=== PATIENT | male | born 1940 | race Caucasian/White ===

== ENCOUNTER 2017-09-12 06:51 | Inpatient (IN) ==
[~2017-09-12 06:51] MED LIST: ACETAMINOPHEN 500 MG TABLET PO ONE; FAMOTIDINE PB 20 MG/50 ML BAG IV ONE; LIDOCAINE 1% (10mg/ml) 2mL INJ PF SDV ID ONE; METOCLOPRAMIDE 10mg/2ml INJECTION IVP ONE; NOZIN NASAL SWAB NAS ONE; ONDANSETRON 4 MG/2 ML INJECTION IVP ONE; TRANEXAMIC ACID 1,000 MG in NS 100 ML IV ONE
[2017-09-12] MEDS ORDERED: TRANEXAMIC ACID 1,000 MG in NS 100 ML IV ONE (07:00)
[2017-09-12 07:05] VITALS: BMI 32.1
[2017-09-12] MEDS ORDERED: VANCOMYCIN 1,000 MG INJECTION ONE (07:08)
[2017-09-12] MEDS: LR 1,000 ML IV SCH ×2 (07:45→08:58)
[2017-09-12] MEDS ORDERED: EPINEPHrine 0.25 MG, BUPIVACAINE 0.25% PF 30 ML, MORPHINE SULFATE 15 MG, KETOROLAC INJ ... OPSITE ONE (08:00)
[2017-09-12] MEDS ORDERED: CEFAZOLIN 1 G INJECTION IVP ONE (08:09)
[2017-09-12] MEDS ORDERED: VANCOMYCIN 1,000 MG INJECTION IAR ONE (08:15)
[2017-09-12] MEDS ORDERED: MIDAZOLAM 2mg/2ml INJECTION ONE (08:43)
[2017-09-12] MEDS ORDERED: PROPOFOL 500 MG/50 ML VIAL IV ONE (08:58)
[2017-09-12] MEDS ORDERED: SALINE FLUSH 10ml SYRINGE ONE (09:12)
[2017-09-12] MEDS ORDERED: EPHEDRINE 50mg/ml INJECTION ONE (09:12)
--- NOTE | 2017-09-12 10:19 | Operative Note ---
- Procedure Preoperative Diagnosis: Left knee primary degenerative joint disease Postoperative Diagnosis: Same as preoperative diagnosis. Surgeon: Garima King MD Rectifying Operator: Michael Robles Complications: None. Anesthesia: Spinal. Estimated Blood Loss: See Anesthesia Record. Fluids: Please see Anesthesia Record. Desciption of Procedure: Mr. Burdick and his left knee were identified and marked in the preoperative holding area. He was brought back to the operating suite after a saphenous nerve block was placed in the preoperative holding area. Spinal anesthetic was administered and he was placed supine on the operating table. The left lower extremity was prepped and draped in my normal sterile fashion. Timeout was performed. The Dial a Dealer robot was used during the surgery. He had a slight flexion contracture with a fixed varus deformity. A standard anterior midline incision followed by medial parapatellar arthrotomy was performed. Anterior fat pad and meniscus were removed. The patella was resurfaced to a size 35. He had complete loss of bone in both medial and lateral compartments. Tibial and femoral arrays were placed both within the original incision. Checkpoints were then placed both in the femur and the tibia. The bone was then registered with the Dial a Dealer robot. Osteophytes were removed and gaps were captured both 90 and 0 with correction. Dial a Dealer suffered was used to adjust components until we achieved 18 mm gaps throughout. The Dial a Dealer robotic arm was then used to assist with the bone cuts. Posterior osteophytes and remaining meniscus were removed. Trial components were placed. We used a 5 femur and a 6 tibia with a 9 mm spacer. He tracked well and was well balanced throughout range of motion. The leg was exsanguinated and the tourniquet inflated to 250 mmHg. The bone was prepared for cementing and components were cemented into place and allowed to cure in extension. The tourniquet was let down and hemostasis obtained with electrocautery. The knee was ranged one more time to ensure good stability, balance and patellar tracking. 1 g of vancomycin powder was then placed into the knee joint. The capsulotomy was then closed with #1 Vicryl. I then left my land surveyor assistant to close the subcutaneous tissue with 2-0 Vicryl. Running 4-0 Monocryl will be used in the subcuticular layer. Dermabond will be used on the skin followed by sterile dressing. After drapes are removed patient will be taken to recovery room under the care of anesthesia.
--- NOTE | 2017-09-12 10:32 | Anesthesia Preoperative Report ---
Anesthesia Preoperative Record - Date and Time Date: 09/12/17 Preoperative Diagnosis: Lt TKA M17.12 Proposed Procedure: left TKA, robot NPO Since Date: 09/11/17 NPO Since Time: 23:00 Allergies/Adverse Reactions: Allergies Allergy/AdvReac Type Severity Reaction Status Date / Time No Known Drug Allergies Allergy Unknown Verified 09/12/17 07:13 - Vital Signs Vital Signs: Temperature 98.0 F 09/12/17 07:05 Pulse Rate 63 09/12/17 07:23 Respiratory Rate 18 09/12/17 07:05 Blood Pressure 150/71 H 09/12/17 07:05 Pulse Oximetry 92 09/12/17 07:05 Height and Weight: Height 5 ft 10.5 in Weight 103.1 kg Body Mass Index 32.1 - Medications Inpatient Medications: Current Medications Lactated Ringer's (Lactated Ringers) 1,000 mls @ 50 mls/hr IV .Q20H ALVARO Last Admin: 09/12/17 08:58 Dose: 50 mls/hr Epinephrine HCl 0.25 mg/Bupivacaine HCl 30 ml/Morphine Sulfate 15 mg/Ketorolac Tromethamine 60 mg/Sodium Chloride 65.25 mls @ 1 mls/hr OPSITE INTRAOP ONE PRN Reason: Protocol Stop: 09/15/17 01:14 Last Admin: 09/12/17 09:33 Dose: 1 mls/hr Sodium Chloride (Iv Flush) 10 - 80 ml IV PRN PRN PRN Reason: Flushing Home Medications: Home Medications Medication Instructions Recorded Confirmed Type Ibuprofen [Advil] 200 mg PO Q6HPRN PRN #0 06/28/13 09/12/17 History Pravastatin Sodium 40 mg PO HS #0 06/28/13 09/12/17 History Lotrel (amlodipine 5 mg-benazepril 1 cap PO DAILY cap 05/03/17 09/12/17 History 20 mg) capsule Fluorouracil 5% Cream 1 dose TP DAILY 08/22/17 09/12/17 History Metformin HCl [Glucophage] 850 mg PO DAILY 08/22/17 09/12/17 History Multivitamin [Multivitamins] 1 each PO DAILY 08/22/17 09/12/17 History Is Patient on Beta Jaime?: No - Medical History Respiratory: Reports: Chronic Obstructive Pulmonary Disease (COPD) (mild. denies SOB unless severe exertion/cold, no breathing tx, no home O2) Cardiovascular: Reports: Hypertension DENIES: Angina, Myocardial Infarction Gastrointestional: DENIES: Gastroesophageal Reflux Disease Renal/Endocrine: Reports: Diabetes Mellitus Type 2 Other History: DENIES: Anesthesia Reactions - Surgical History Neurological Surgeries: Reports: Other (Lumbar fusion-) HEENT Surgeries: Reports: Eye Surgery (cataract ext w/ IOL-OU) GI Surgery/Treatments: Reports: Colon Resection (low resection w/ ileostomy; reversal ileostomy), Colonoscopy, Other (POWERE PORT PLACED AND REMOVED FOR CHEMO S/P COLON RESECTION) Surgery/Treatment: REPORT: Other (TURP) Musculoskeletal Surgery/Tx: Reports: Other (lumbar fusion) Anesthesia Reactions: None Hx Family Anesthesia Reaction: No History of Motion Sickness: No - Social History Smoking Status: Former smoker Substance Use Type: does not use Alcohol Intake Frequency: does not drink - Pertinent Findings Laboratory: CBC and BMP 09/12/17 07:14 BMP 09/12/17 07:14 Sodium 143 Potassium 4.3 Chloride 104 Carbon Dioxide 27 BUN 21.0 H Creatinine 0.7 L Glucose 121 H Calcium 9.1 EKG: Sinus Rhythm - Physical Exam Respiratory Exam: Present: lungs clear, bilateral breath sounds equal Cardiovascular Exam: Present: regular rate and rhythm - Airway Assessment Mallampati Score: II TMD: 3 Fingerbreadths Neck Extension: fair Teeth: upper dentures, lower dentures Overall Assessment: no airway concerns - ASA ASA Score: 2 - Plan Anesthesia: General TIVA, Neuroaxial Regional/Trunk Block: Spinal - Discussion Discussion: Discussed risks/options/alternatives of anesthesia and questions answered. Patient consents. Nursing pain assessment noted. Attestation Statement: Prior to the delivery of any anesthetic medication, I examined the patient, developed the plan, obtained the patient's consent and discussed the risk and benefits of the procedure with the patient/guardian. - Additional Information Seen by Anesthesia: Yes
[2017-09-12] MEDS ORDERED: ROPIVACAINE 0.5% (5mg/ml) 30ml INJ ONE (10:40)
--- NOTE | 2017-09-12 11:30 | XRay Report ---
Indication: postoperative image PROCEDURE: XR knee LT 2V: Encounter: Initial Comparison: July 13, 2017 Findings: Postoperative changes of left total knee replacement are seen. There is expected postoperative subcutaneous gas. No evidence of hardware failure or acute fracture. No retained radiopaque surgical instruments or sponges. Overlying material causing artifact. Impression: New left total knee prosthesis without evidence of immediate complication. .
--- NOTE | 2017-09-12 11:40 | Anesthesia Postoperative Note ---
- Date and Time Date: 09/12/17 Time: 11:14 - Status Patient Participated in Evaluation: Patient Participated in Person Vital Signs: Temperature 97.4 F 09/12/17 11:30 Pulse Rate 58 L 09/12/17 11:30 Respiratory Rate 11 09/12/17 11:30 Blood Pressure 152/72 H 09/12/17 11:30 Pulse Oximetry 100 09/12/17 11:30 Respiratory Function: Airway Patent Cardiovascular Function: Regular Pulse EKG: Sinus Rhythm Mental Status: Alert and Oriented Pain Intensity: 0 Hydration: IV Infusing Complications During Recover: None Apparent - Follow-Up Instructions Instructions: Per Surgeon
--- NOTE | 2017-09-12 11:41 | Anesthesia Procedure Note ---
Peripheral Nerve Blockade - Procedure Physician: Slade King MD Date: 09/12/17 Surgical Procedure: left TKA Discussion: Discussed risks/options/alternatives of anesthesia and questions answered. Patient consents. Nursing pain assessment noted. Block Start: 10:54 Block Stop: 10:57 Blocked Employed: Adductor Canal Indication: Post-Operative Pain Approach: Left Side Confirmed Position: Supine Patient: Consent, Risks/Benefits Discussed, Informed, Post Block Act. Discussed IV Sedation: No (spinal still in effect) Initial Vital Signs: Temperature 98.0 F 09/12/17 07:05 Temperature Source Oral 09/12/17 07:05 Pulse Rate 71 09/12/17 07:05 Respiratory Rate 18 09/12/17 07:05 Blood Pressure 150/71 H 09/12/17 07:05 Blood Pressure Mean 97 09/12/17 07:05 Blood Pressure Position Sitting 09/12/17 07:05 Pulse Oximetry 92 09/12/17 07:05 Oxygen Delivery Method 09/12/17 07:05 Post Vital Signs: Temperature 97.4 F 09/12/17 11:30 Pulse Rate 58 L 09/12/17 11:30 Respiratory Rate 11 09/12/17 11:30 Blood Pressure 152/72 H 09/12/17 11:30 Pulse Oximetry 100 09/12/17 11:30 Initial Pain Pain Score: 0 Post Block Pain Score: 0 Prep: Chlorhexadine/ETOH Ultrasound Used?: Yes - Injectate Ropivacaine (%): 0.5 Ropivacaine (mL): 30 Injection: Injection made incrementally with constant monitoring and aspiration every ml
[2017-09-12] MEDS ORDERED: NOZIN NASAL SWAB NAS ONE (11:46)
[2017-09-12] MEDS ORDERED: NAPROXEN 220 MG TABLET PO PRN (11:46)
[2017-09-12] MEDS ORDERED: LORazepam 1 MG TABLET PO PRN (11:46)
[2017-09-12] MEDS ORDERED: DiphenhydrAMINE 25 MG CAPSULE PO PRN (11:46)
[2017-09-12] MEDS ORDERED: DiphenhydrAMINE 50 MG/ML INJECTION IVP PRN (11:46)
[2017-09-12] MEDS ORDERED: ONDANSETRON 4 MG/2 ML INJECTION IVP PRN (11:46)
[2017-09-12] MEDS ORDERED: INSULIN ASPART 100unit/ml INJECTION SQ PRN (11:46)
[2017-09-12] MEDS: NS 1,000 ML IV SCH ×2 (11:53→23:07)
[2017-09-12] MEDS: ACETAMINOPHEN 325 MG TABLET PO SCH ×3 (12:50→20:01)
[2017-09-12] MEDS: LOPERAMIDE 2 MG PO SCH ×3 (12:51→18:23)
[2017-09-12] MEDS: NOZIN NASAL SWAB NAS SCH ×2 (13:49→23:08)
[2017-09-12] MEDS ORDERED: SALINE FLUSH 10ml SYRINGE IV PRN (14:15)
[2017-09-12] MEDS: Oxycodone *IR* 5 MG TABLET PO PRN ×2 (15:43→19:57)
[2017-09-12] MEDS: CEFAZOLIN 2 G in NS 100 ML IV SCH (16:32)
[2017-09-12] MEDS: PRAVASTATIN 40 MG TABLET PO SCH (20:00)
[2017-09-12] MEDS: DOCUSATE SODIUM 100 MG CAPSULE PO SCH (20:00)
[2017-09-12] MEDS: ASPIRIN *EC* 81 MG TABLET PO SCH (20:00)
[2017-09-12] MEDS: SENNOSIDES 8.6 MG TABLET PO SCH (20:01)
[2017-09-13] MEDS: NS 1,000 ML IV SCH (01:24)
[2017-09-13] MEDS: CEFAZOLIN 2 G in NS 100 ML IV SCH (01:24)
[2017-09-13] MEDS: NOZIN NASAL SWAB NAS SCH ×4 (06:20→21:42)
--- NOTE | 2017-09-13 08:23 | Orthopedic Progress Note ---
Date: Subjective/Severity of Illness: Irais is doing well. Pain is well controlled. No specific complaints of CP, or SOA. He has been up with good tolerance. Orthopedic Objective PO Vital signs: Temperature 97.2 F 09/13/17 07:47 Pulse Rate 63 09/13/17 07:47 Respiratory Rate 16 09/13/17 07:47 Blood Pressure 156/69 H 09/13/17 07:47 Pulse Oximetry 92 09/13/17 07:47 Height and Weight: Height 5 ft 10.5 in Weight 227 lb 4.745 oz Body Mass Index 32.1 - Constitutional General Appearance: Present: alert, cooperative, no acute distress - Respiratory Exam Present: non-labored - Extremities Exam Extremities: Present: pulses intact, normal capillary refill. Absent: calf tenderness - Surgical Site Incision: Mepilex dressing intact, no drainage - Integumentary Exam Present: pink, warm, dry - Neurological Exam Present: intact to light touch, no deficits - Psychiatric Exam Present: alert, normal affect - Labs Result Diagrams: 09/13/17 03:54 09/13/17 03:54 Abnormal lab results 09/13/17 09/13/17 Range/Units 03:54 03:54 RBC 4.41 L (4.50-5.90) M/MM3 Hgb 12.1 L (13.5-17.5) GM/DL Hct 38.0 L (41-53) % Plt Count 116 L (130-400) T/MM3 MPV 13.2 H (9.4-12.4) UM3 Creatinine 0.7 L (0.8-1.5) MG/DL Glucose 116 H (75-110) MG/DL Calcium 7.8 L D (8.4-10.2) MG/DL H & H 09/13/17 Range/Units 03:54 Hgb 12.1 L (13.5-17.5) GM/DL Hct 38.0 L (41-53) % Orthopedic Assessment and Plan (1) Primary osteoarthritis of left knee Status: Acute Assessment and Plan: Current anti-coagulation protocol for VTE prophylaxis. SCD's. Resume oral diabetic agents. Monitor blood sugars. PT/OT services to improve independent function. Discharge Planning per Case Management. (2) Type 2 diabetes mellitus Status: Chronic - Anticoagulation Therapy Anticoagulation: other (ASA 81mg BID x 6 weeks.) Hospital Course Summary Disclaimer: The visit summary below is not to be considered part of the above Progress Note.
[2017-09-13] MEDS: ACETAMINOPHEN 325 MG TABLET PO SCH ×4 (08:47→20:19)
[2017-09-13] MEDS: METFORMIN 850 MG TABLET PO SCH (08:47)
[2017-09-13] MEDS: LOPERAMIDE 2 MG PO SCH ×3 (08:47→17:14)
[2017-09-13] MEDS: POLYETHYL GLYCOL 3350 17gm PACKET PO SCH (08:48)
[2017-09-13] MEDS: DOCUSATE SODIUM 100 MG CAPSULE PO SCH ×2 (08:48→20:15)
[2017-09-13] MEDS: ASPIRIN *EC* 81 MG TABLET PO SCH ×2 (08:48→20:19)
[2017-09-13] MEDS: AMLODIPINE/BENAZEPRIL 5mg/20mg CAPSULE PO SCH (08:53)
[2017-09-13] MEDS: Oxycodone *IR* 5 MG TABLET PO PRN ×3 (09:49→23:07)
[2017-09-13] MEDS ORDERED: SENNOSIDES 8.6 MG TABLET PO PRN (10:41)
--- NOTE | 2017-09-13 12:55 | Discharge Instructions ---
Discharge Plan - Med Rec/Dispo Referrals/Follow Up: Slade King MD [Physician] - 10/04/17 9:15 am Isabel Instructions: [facility] [place] Postop Instructions Prescriptions: New Naproxen [Aleve] 440 mg PO BID PRN #60 tab PRN Reason: Pain Oxycodone *IR* [Roxicodone *Ir*] 5 - 15 mg PO Q3H PRN #60 tab PRN Reason: Breakthrough Pain Acetaminophen [Tylenol] 650 mg PO QID #100 tab Aspirin *EC* [Ecotrin] 81 mg PO BID #84 tab Discontinued Ibuprofen [Advil] 200 mg PO Q6HPRN PRN #0 PRN Reason: Pain No Action Multivitamin [Multivitamins] 1 each PO DAILY Pravastatin Sodium 40 mg PO HS #0 Fluorouracil 5% Cream 1 dose TP DAILY Metformin HCl [Glucophage] 850 mg PO DAILY Lotrel (amlodipine 5 mg-benazepril 20 mg) capsule 1 cap PO DAILY cap - Disposition 01 Discharged Home, Self-Care
--- NOTE | 2017-09-13 13:02 | Orthopedic Progress Note ---
Date: Subjective/Severity of Illness: Irais struggled with PT today, Mushtaq said her was not safe to discharge home. I have asked the healthcare administrative assistant to arrange for a different discharge plan. We will keep him tonight. Pain is well controlled. No specific complaints of CP, or SOA. He has been up with good tolerance. Orthopedic Objective PO Vital signs: Temperature 97.0 F 09/13/17 12:32 Pulse Rate 68 09/13/17 12:32 Respiratory Rate 18 09/13/17 12:32 Blood Pressure 127/64 09/13/17 12:32 Pulse Oximetry 92 09/13/17 12:32 Height and Weight: Height 5 ft 10.5 in Weight 227 lb 4.745 oz Body Mass Index 32.1 - Constitutional General Appearance: Present: alert, cooperative, no acute distress - Respiratory Exam Present: non-labored - Extremities Exam Extremities: Present: pulses intact, normal capillary refill. Absent: calf tenderness - Surgical Site Incision: Mepilex dressing intact, no drainage - Integumentary Exam Present: pink, warm, dry - Neurological Exam Present: intact to light touch, no deficits - Psychiatric Exam Present: alert, normal affect - Labs Result Diagrams: 09/13/17 03:54 09/13/17 03:54 Abnormal lab results 09/13/17 09/13/17 Range/Units 03:54 03:54 RBC 4.41 L (4.50-5.90) M/MM3 Hgb 12.1 L (13.5-17.5) GM/DL Hct 38.0 L (41-53) % Plt Count 116 L (130-400) T/MM3 MPV 13.2 H (9.4-12.4) UM3 Creatinine 0.7 L (0.8-1.5) MG/DL Glucose 116 H (75-110) MG/DL Calcium 7.8 L D (8.4-10.2) MG/DL H & H 09/13/17 Range/Units 03:54 Hgb 12.1 L (13.5-17.5) GM/DL Hct 38.0 L (41-53) % Orthopedic Assessment and Plan (1) Type 2 diabetes mellitus Status: Chronic (2) Primary osteoarthritis of left knee Status: Acute Assessment and Plan: Keep him tonight due to his mobility not being safe. accreditation coordinator to arrange a different plan. Current anti-coagulation protocol for VTE prophylaxis. SCD's. Resume oral diabetic agents. Monitor blood sugars. PT/OT services to improve independent function. Discharge Planning per Case Management. - Anticoagulation Therapy Anticoagulation: other (ASA 81mg BID x 6 weeks.) Hospital Course Summary Disclaimer: The visit summary below is not to be considered part of the above Progress Note.
[2017-09-13] MEDS: SENNOSIDES 8.6 MG TABLET PO SCH (20:16)
[2017-09-13] MEDS: PRAVASTATIN 40 MG TABLET PO SCH (20:19)
[2017-09-14] MEDS: NOZIN NASAL SWAB NAS SCH ×2 (05:52→13:17)
[2017-09-14] MEDS: Oxycodone *IR* 5 MG TABLET PO PRN ×2 (06:24→10:12)
[2017-09-14] MEDS: METFORMIN 850 MG TABLET PO SCH (08:14)
[2017-09-14] MEDS: AMLODIPINE/BENAZEPRIL 5mg/20mg CAPSULE PO SCH (08:14)
[2017-09-14] MEDS: ACETAMINOPHEN 325 MG TABLET PO SCH ×2 (08:14→13:15)
[2017-09-14] MEDS: ASPIRIN *EC* 81 MG TABLET PO SCH (08:14)
[2017-09-14] MEDS: LOPERAMIDE 2 MG PO SCH ×2 (08:14→13:16)
[2017-09-14] MEDS: DOCUSATE SODIUM 100 MG CAPSULE PO SCH (08:15)
[2017-09-14] MEDS: POLYETHYL GLYCOL 3350 17gm PACKET PO SCH (08:15)
--- NOTE | 2017-09-14 09:40 | Orthopedic Progress Note ---
Date: Subjective/Severity of Illness: Irais struggled with PT yesterday, I have yet to hear a report about how he is getting around today. I have asked the medicare biller to arrange for a different discharge plan. Pain is well controlled. No specific complaints of CP, or SOA. He has been up with good tolerance. Orthopedic Objective PO Vital signs: Temperature 96.2 F L 09/14/17 08:06 Pulse Rate 70 09/14/17 08:06 Respiratory Rate 18 09/14/17 08:06 Blood Pressure 158/78 H 09/14/17 08:06 Pulse Oximetry 94 09/14/17 08:06 Height and Weight: Height 5 ft 10.5 in Weight 227 lb 4.745 oz Body Mass Index 32.1 - Constitutional General Appearance: Present: alert, cooperative, no acute distress - Respiratory Exam Present: non-labored - Extremities Exam Extremities: Present: pulses intact, normal capillary refill. Absent: calf tenderness - Surgical Site Incision: Mepilex dressing intact, no drainage - Integumentary Exam Present: pink, warm, dry - Neurological Exam Present: intact to light touch, no deficits - Psychiatric Exam Present: alert, normal affect - Labs Result Diagrams: 09/14/17 03:58 09/14/17 03:58 Abnormal lab results 09/14/17 09/14/17 Range/Units 03:58 03:58 WBC 11.8 H (4.5-11.0) T/MM3 RBC 4.38 L (4.50-5.90) M/MM3 Hgb 11.9 L (13.5-17.5) GM/DL Hct 37.2 L (41-53) % Plt Count 119 L (130-400) T/MM3 MPV 12.8 H (9.4-12.4) UM3 Creatinine 0.7 L (0.8-1.5) MG/DL Glucose 120 H (75-110) MG/DL H & H 09/13/17 09/14/17 Range/Units 03:54 03:58 Hgb 12.1 L 11.9 L (13.5-17.5) GM/DL Hct 38.0 L 37.2 L (41-53) % Orthopedic Assessment and Plan (1) Type 2 diabetes mellitus Status: Chronic (2) Primary osteoarthritis of left knee Status: Acute Assessment and Plan: PT to work with him today. irb compliance coordinator to arrange a different plan. Current anti-coagulation protocol for VTE prophylaxis. SCD's. Resume oral diabetic agents. Monitor blood sugars. PT/OT services to improve independent function. Discharge Planning per Case Management. Hospital Course Summary Disclaimer: The visit summary below is not to be considered part of the above Progress Note.
[2017-09-14 11:09] VITALS: BP 152/69; PULSE 77; RESP 16; TEMP 96.8; O2SAT 93
--- NOTE | 2017-09-14 12:34 | Discharge Summary ---
Orthopedic Discharge Info Date of admission: 09/12/17 06:51 Primary care physician: Reymundo Dewitt II, MD Attending Physician: Slade King MD Consults: 09/12/17 07:01 Consult to Anesthesiology [CONS] Routine Consulting Provider: JOSLYN Amos Reason For Exam: Preoperative Assessment 09/12/17 11:46 Case Management Consult [CONS] Routine Reason For Exam: Discharge Planning DME-Walker [CONS] Routine Height: 5 ft 10.5 in Weight: 227 lb 4.745 oz Comment: change dressing in 2 weeks Total Joint Outpatient Therapy [CONS] Routine Comment: change dressing in 2 weeks 09/13/17 IRU Screening [Inpatient Rehab Screening] [CONS] Routine 09/13/17 13:31 Physician Consult [CONS] Routine Consulting Provider: Yolis James Reason For Exam: snu placement Ordering Provider has Notified District Adviser: Yes - Discharge Diagnosis (1) Type 2 diabetes mellitus Status: Chronic (2) Primary osteoarthritis of left knee Status: Acute - Laboratory Result Diagrams: 09/14/17 03:58 09/14/17 03:58 Laboratory: Abnormal lab results 09/14/17 09/14/17 Range/Units 03:58 03:58 WBC 11.8 H (4.5-11.0) T/MM3 RBC 4.38 L (4.50-5.90) M/MM3 Hgb 11.9 L (13.5-17.5) GM/DL Hct 37.2 L (41-53) % Plt Count 119 L (130-400) T/MM3 MPV 12.8 H (9.4-12.4) UM3 Creatinine 0.7 L (0.8-1.5) MG/DL Glucose 120 H (75-110) MG/DL H & H 09/13/17 09/14/17 Range/Units 03:54 03:58 Hgb 12.1 L 11.9 L (13.5-17.5) GM/DL Hct 38.0 L 37.2 L (41-53) % Orthopedic Discharge HPI - HPI Comments This patient was admitted for elective surgical tx of end stage degenerative joint disease that failed to respond to conservative treatment. Further details of this is found in the admission H&P. Orthopedic Hospital Course Hospital course: 09/14/17 12:33 After appropriate preoperative clearance and signing of operative consent, the patient was given IV antibiotics, according to orthopedic protocol. The patient was taken to the operating room and underwent elective joint arthroplasty. Following surgery, antibiotics were discontinued less than 24 hours according to joint protocol. Appropriate anticoagulants were initiated and SCDs added for DVT prevention. The dressing was clean, dry, and intact. Pain control was obtained via multimodal approach. Bowel motivation addressed with scheduled and PRN medications. Early mobilization was initiated through PT services. Discharge arrangements made by a collaborative effort between the patient and Case Management. Irais had some trouble with mobility post op day one. PT recommended he discharge with home health. This was arranged post op day 2. Follow-up is scheduled in 2-3 weeks. Discharge instructions given by orthopedic providers and nursing staff at discharge. Discharge condition was good. Discharge Plan - Med Rec/Dispo Referrals/Follow Up: Slade King MD [Physician] - 10/04/17 9:15 am Isabel Instructions: [facility] Ortho Postop Instructions Prescriptions: New Naproxen [Aleve] 440 mg PO BID PRN #60 tab PRN Reason: Pain Oxycodone *IR* [Roxicodone *Ir*] 5 - 15 mg PO Q3H PRN #60 tab PRN Reason: Breakthrough Pain Acetaminophen [Tylenol] 650 mg PO QID #100 tab Aspirin *EC* [Ecotrin] 81 mg PO BID #84 tab Discontinued Ibuprofen [Advil] 200 mg PO Q6HPRN PRN #0 PRN Reason: Pain No Action Multivitamin [Multivitamins] 1 each PO DAILY Pravastatin Sodium 40 mg PO HS #0 Fluorouracil 5% Cream 1 dose TP DAILY Metformin HCl [Glucophage] 850 mg PO DAILY Lotrel (amlodipine 5 mg-benazepril 20 mg) capsule 1 cap PO DAILY cap - Disposition 01 Discharged Home, Self-Care
[2017-09-14] MEDS ORDERED: BISACODYL 10 MG SUPPOSITORY RECTALLY SCH (20:00)
--- NOTE | 2017-09-15 13:45 | Right on Track Program ---
Right on Track Program Date of Discharge: 09/14/17 Home Medications: Home Medications Medication Instructions Recorded Confirmed Pravastatin Sodium 40 mg PO HS #0 06/28/13 09/12/17 Lotrel (amlodipine 5 mg-benazepril 1 cap PO DAILY cap 05/03/17 09/12/17 20 mg) capsule Fluorouracil 5% Cream 1 dose TP DAILY 08/22/17 09/12/17 Metformin HCl [Glucophage] 850 mg PO DAILY 08/22/17 09/12/17 Multivitamin [Multivitamins] 1 each PO DAILY 08/22/17 09/12/17 Previous Rx's Medication Instructions Recorded Acetaminophen [Tylenol] 650 mg PO QID #100 tab 09/13/17 Aspirin *EC* [Ecotrin] 81 mg PO BID #84 tab 09/13/17 Naproxen [Aleve] 440 mg PO BID PRN #60 tab 09/13/17 Oxycodone *IR* [Roxicodone *Ir*] 5 - 15 mg PO Q3H PRN #60 tab 09/13/17 - Right on Track Program F/U phone call 09/15/17 Date: 09/15/17 Right on Track Program: 24 Hour Follow-Up Discharge Summary Received: Yes Care Plan Received: Yes Follow Up: Follow Up Appointment Scheduled Education: Diagnosis Education Reviewed Referral: Home Health Comments: NELY - Bharti I called Irais on 09/15/17 - he stated that 3 people from [facility] have already checked on him today. He states that the discharge instructions were reviewed in depth and he doesn't have any questions. He filled his Rx without any problem. F/U appt is scheduled with Dr. King. He's not sure if he wants to have a home visit because he already has so much help - he asked that I call back in a week to check on him. Recommendations For Follow-up: ASSESSMENT 1. S/P Left TKA - had issues with mobility postop 2. COPD 3. DM2 4. HTN PLAN Continue Home Health Will call back in a week to see if he would like a [id number] visit with ONEL F/U with Dr. King as planned F/U phone call 09/22/17 Date: 09/22/17 Comments: I called Irais on 09/22/17. He is doing very well. He has home health come out 3 days per week. He receives good reports from the therapists regarding his progress towards his goals. He denies any new symptoms such as shortness of breath or chest pain. He's been eating well. He doesn't check his blood sugars at home. His pain tends to be the worst in the morning, but is improving overall. He is motivated - wants to be able to drive again soon. He has an appt planned with Dr. King on 10/04/17. At this time, he declined a home visit. He is pleased with the way his recovery is going and doesn't feel like another visit would be necessary. I instructed him to reach me at the hospital should he change his mind.
== END 2017-09-14 16:15 | disposition home health service (06) | DRG 470 ==
LOC: SRG 06:51
PROVIDERS: ADMIT Orthopaedic Surgery; ATTEND Orthopaedic Surgery